=== PATIENT | male | born 1985 | race Caucasian/White ===

== ENCOUNTER 2016-06-27 10:33 | Emergency (ER) | payer SELFPAY ==
[~2016-06-27] VITALS: Ht 182.9 cm; Wt 75.0 kg
[2016-06-27 10:34] VITALS: BP 127/90; PULSE 59; RESP 15; TEMP 97.6; O2SAT 98
--- NOTE | 2016-06-27 12:05 | PD ---
HPI Chief Complaint: Skin Problem Time Seen by Provider: 11:56 Travel History International Travel<30 days: No Contact w/Intl Traveler<30days: No Traveled to known affect area: No History of Present Illness HPI 30-year-old male presents to emergency department requesting some thing to be done about a lump to his right ear and to his right chest that has been there for multiple years. The lump on his chest and there for a few years longer than the one on his ear. He can't specify the amount of time but has been multiple years. Says the lumps are getting bigger. He denies fever, chills, nausea, vomiting. Denies that they're painful. He has not had any outpatient follow-up in regards to the lumps. Does not have primary care provider. No known allergies. No other modifying factors or associated signs and symptoms. Allergies-Medications (Allergen,Severity, Reaction): Coded Allergies: No Known Allergies (Unverified , 06/27/16) Reported Meds & Prescriptions Reported Meds & Active Scripts Active No Active Prescriptions or Reported Medications Review of Systems Except as stated in HPI: all other systems reviewed are Neg Physical Exam Narrative GENERAL: Well-nourished, well-developed male patient, in no acute distress; afebrile, nontoxic-appearing SKIN: There is a soft, nontender lump that is approximately 2.5cm in diameter to the right ear tragus area that is without erythema, edema, warmth to touch; without signs of infectious process. There is a soft nontender lump that is approximately 1 cm in diameter to the right lower breast area of the chest wall without erythema, edema, warmth to touch; without signs of infectious process. HEAD: Atraumatic. Normocephalic. EYES: Pupils equal and round. No scleral icterus. No injection or drainage. ENT: Mucosa pink and moist. Airway patent. NECK: Trachea midline. CARDIOVASCULAR: Regular rate. RESPIRATORY: No accessory muscle use. GASTROINTESTINAL: Flat. MUSCULOSKELETAL: No obvious deformities. No clubbing. No cyanosis. No edema. NEUROLOGICAL: Awake and alert. Oriented 3. No obvious cranial nerve deficits. Motor grossly within normal limits. Normal speech. PSYCHIATRIC: Appropriate mood and affect; insight and judgment normal. Data Data Last Documented VS Vital Signs Date Time Temp Pulse Resp B/P Pulse Ox O2 Delivery O2 Flow Rate FiO2 06/27/16 10:34 97.6 59 15 127/90 98 MDM Medical Screen Exam Complete: Yes Emergency Medical Condition: No Differential Diagnosis Cyst, hemangioma, tumor Narrative Course 30-year-old male with a lump to his right ear tragus area and right lower breast area that are noninfectious and have been there for multiple years. The patient is afebrile. He denies fever, chills, nausea, vomiting. He is requesting something to be done about the lumps. He has not had outpatient follow-up. Vital signs are stable and the patient is stable for outpatient follow-up and treatment. The patient has no urgent or emergent medical complaints. There is no emergent or urgent medical need at this time. I instructed the patient to follow up with their primary care provider. A medical screening exam was performed: At the time of evaluation the presenting medical condition was determined not to be of an emergent nature. The patient was given the option of receiving additional care, but declined. Patient was given options for additional community resources from which to obtain care. The Patient Has Been advised to seek medical attention for their presenting complaint. The patient has been advised to return to the ER at any time if an emergent condition develops. Primary Impression: Encounter for medical screening examination Scripts No Active Prescriptions or Reported Meds Condition: Stable Mariana Watts Jun 27, 2016 12:05
== END 2016-06-27 12:08 | disposition left against medical advice (07) ==
LOC: NEPB 10:33
DX: R22.0 Localized swelling, mass and lump, head (principal); R22.2 Localized swelling, mass and lump, trunk
CPT/HCPCS: 99281